=== PATIENT | female | born 1980 | race Caucasian/White ===

== ENCOUNTER 2017-09-18 14:30 | Emergency (ER) | payer OTHER ==
[~2017-09-18] VITALS: Ht 185.4 cm; Wt 127.0 kg
[2017-09-18] MEDS ORDERED: NORCO 5-325 TA1 EACH PO (14:43)
[2017-09-18] MEDS ORDERED: FLEXERIL PO (14:43)
[2017-09-18 16:43] VITALS: BP 120/55
== END 2017-09-18 16:44 | disposition home or self-care (01) ==
LOC: ER 14:30
DX: S39.012A Strain of muscle, fascia and tendon of lower back, initial encounter (principal); F17.210 Nicotine dependence, cigarettes, uncomplicated; W19.XXXA Unspecified fall, initial encounter; Y93.89 Activity, other specified; Y92.89 Other specified places as the place of occurrence of the external cause; Y99.8 Other external cause status